=== PATIENT | male | born 1990 | race Caucasian/White ===

== ENCOUNTER → 2023-11-10 19:04 | Outpatient (CLI) | payer OTHER, SELFPAY ==
--- NOTE | 2023-11-10 | DI.MRI.S_ITS ---
PROCEDURE: MR WRIST LT WO CON INDICATIONS: radial styloid tenosynovitis TECHNIQUE: Noncontrast coronal proton density fast spin echo and T2 fast spin echo with fat saturation; coronal 3-D gradient echo, axial T1 spin echo and T2 fast spin echo with fat saturation, sagittal T1 spin echo through the wrist. COMPARISON: [facility], MR, MR WRIST RT WO CON, 11/10/2023, 19:19. FINDINGS: Image quality: Excellent. Bones and cartilage: The carpal bones are normally aligned. There is marrow edema involving 1st metacarpal base, trapezium and lateral periphery of 2nd metacarpal base and trapezoid. No discrete fracture line is seen. No evidence for avascular necrosis. Overlying cartilage surfaces appear normal. Carpal ligaments: The scapholunate and lunotriquetral ligaments appear intact. In the absence of intra-articular contrast, the extrinsic carpal ligaments are not well identified. On sagittal images, the pisohamate ligament appears intact. Triangular fibrocartilage complex: The triangular fibrocartilage appears intact. The adjacent meniscal homolog appears normal in the absence of intra-articular contrast. The extensor carpi ulnaris tendon is mildly thickened at the level of ulnar styloid. Tendons and soft tissues: The carpal tunnel structures appear normal, including the median nerve. The ulnar nerve appears normal within Guyon's canal. There is thickened abductor pollicis longus tendon at the level of 1st metacarpal base and trapezium with subtle intrasubstance T2 hyperintense signal. The extensor pollicis brevis tendon appears intact. Rest of the extensor tendon compartments demonstrate normal morphology, without pathologic tendon sheath fluid. No soft tissue ganglion cysts. IMPRESSION: 1. Tendinosis and low-grade intrasubstance partial-thickness tear involving abductor pollicis longus tendon at the level of 1st CMC joint and trapezium. 2. Mild tendinosis involving extensor carpi ulnaris tendon at the level of ulnar styloid. 3. Suggestion of mild bony contusion involving 1st metacarpal base and trapezium as well as lateral aspect of 2nd CMC joint. No fracture or dislocation. No evidence of avascular necrosis. 4. Scapholunate and lunotriquetral ligaments are intact. Triangular fibrocartilage complex is intact. Dictated by: Vinh Mendieta M.D. on 11/11/2023 at 9:19 Approved by: Vinh Mendieta M.D. on 11/11/2023 at 9:27
--- NOTE | 2023-11-10 | DI.MRI.S_ITS ---
PROCEDURE: MR WRIST RT WO CON INDICATIONS: radial styloid tenosyovitis - right TECHNIQUE: Noncontrast coronal proton density fast spin echo and T2 fast spin echo with fat saturation; coronal 3-D gradient echo, axial T1 spin echo and T2 fast spin echo with fat saturation, sagittal T1 spin echo through the wrist. COMPARISON: None. FINDINGS: Image quality: Excellent. Bones and cartilage: The carpal bones are normally aligned. There is mild marrow edema involving radial styloid without discrete fracture line. No other area of abnormal marrow signal. No evidence for avascular necrosis. Overlying cartilage surfaces appear normal. Carpal ligaments: The scapholunate and lunotriquetral ligaments appear intact. In the absence of intra-articular contrast, the extrinsic carpal ligaments are not well identified. On sagittal images, the pisohamate ligament appears intact. Triangular fibrocartilage complex: There is signal abnormality involving triangular fibrocartilage near its ulnar insertion concerning for subtle TFC tear. The adjacent meniscal homolog appears normal in the absence of intra-articular contrast. The extensor carpi ulnaris tendon is thickened with subtle intrasubstance T2 hyperintense signal at the level of ulnar styloid and proximal triquetrum. Tendons and soft tissues: The carpal tunnel structures appear normal, including the median nerve. The ulnar nerve appears normal within Guyon's canal. Mildly thickened 1st extensor compartment involving extensor pollicis brevis and abductor pollicis longus tendons at the level of radial styloid is seen. Rest of the extensor tendon compartments demonstrate normal morphology, without pathologic tendon sheath fluid. No soft tissue ganglion cysts. IMPRESSION: 1. Suggestion of contusion involving radial styloid and distal radius without discrete fracture line. No other areas of marrow signal abnormality. No evidence of avascular necrosis. 2. Finding is concerning for subtle triangular fibrocartilage complex tear near its ulnar insertion. 3. Tendinosis and low-grade intrasubstance partial-thickness tear involving extensor carpi ulnaris tendon at the level of ulnar styloid and proximal triquetrum. 4. Tendinosis involving extensor pollicis brevis and abductor pollicis longus tendons at the level of radial styloid. 5. Scapholunate and lunotriquetral ligaments are intact. Dictated by: Vinh Mendieta M.D. on 11/11/2023 at 8:55 Approved by: Vinh Mendieta M.D. on 11/11/2023 at 9:18
== END ==
DX: M65.4 Radial styloid tenosynovitis [de Quervain] (principal); S66.812A Strain of other specified muscles, fascia and tendons at wrist and hand level, left hand, initial encounter; S66.811A Strain of other specified muscles, fascia and tendons at wrist and hand level, right hand, initial encounter
CPT/HCPCS: 73221

== ENCOUNTER → 2024-02-02 17:08 | Outpatient (CLI) | payer OTHER, SELFPAY ==
--- NOTE | 2024-02-02 17:10 | DI.MRI.S_ITS ---
PROCEDURE: MR LUMBAR SPINE WO CON INDICATIONS: Radiculopathy, lumbar region TECHNIQUE: Noncontrast sagittal T1 spin echo and T2 fast echo, sagittal STIR, and T2 fast spin echo through the lumbar spine. In cases with scoliosis, additional coronal T2 fast spin echo may be performed. COMPARISON: None. FINDINGS: Image quality: Excellent. Alignment and Curvature: Mild anterolisthesis of L5 on S1. Bone Marrow: Bilateral L5 pars interarticularis defects. Marrow is of normal overall signal. No acute vertebral body compression fractures. Spinal Cord: Conus medullaris terminates at the L1 level. Visualized cord demonstrates normal signal and size. Paraspinous Soft Tissues: No paravertebral masses. T12-L1: Normal appearance. L1-L2: Normal appearance. L2-L3: Normal appearance. L3-L4: Disc desiccation and minimal disc bulge. No central canal or neural foraminal stenosis. L4-L5: Normal in appearance. L5-S1: Disc desiccation and height loss. Mild diffuse disc bulge. No central canal stenosis. Facet arthropathy. Moderate right and severe left neural foraminal stenosis.. IMPRESSION: Degenerative changes most pronounced at L5-S1 with mild anterolisthesis and bilateral pars interarticularis defects. There is a mild diffuse disc bulge and facet arthropathy resulting in moderate right and severe left neural foraminal stenosis. No central canal stenosis. Dictated by: Aiden Eaton M.D. on 02/03/2024 at 8:26 Approved by: Aiden Eaton M.D. on 02/03/2024 at 8:30
== END ==
PROVIDERS: Referring Provider Physical Medicine & Rehabilitation Pain Medicine; Visit Provider Physical Medicine & Rehabilitation Pain Medicine
DX: M47.27 Other spondylosis with radiculopathy, lumbosacral region (principal); M51.17 Intervertebral disc disorders with radiculopathy, lumbosacral region; M48.07 Spinal stenosis, lumbosacral region
CPT/HCPCS: 72148